=== PATIENT | female | born 1950 | race African-American/Black ===

== ENCOUNTER 2017-07-21 10:08 | Emergency (ER) | payer MEDICAID, MEDICARE ==
[2017-07-21] MEDS ORDERED: Morphine INJ* 4 MG/ML 1 ML CARPUJECT IV ONE (10:52)
[2017-07-21] MEDS ORDERED: Ondansetron INJ* 2 MG/ML VIAL IV ONE (10:52)
[2017-07-21] MEDS ORDERED: NS 0.9% 1000 ML* 1,000 ML IV SCH (11:00)
[2017-07-21 11:32] LABS: Hematocrit 38 % (35-47); Hemoglobin 12.2 g/dl (12.0-16.0); Mean Corpuscular HGB Conc 32 g/dl (31-36); Mean Corpuscular Hemoglobin 26 pg (27-31); Mean Corpuscular Volume 80 fL (80-97); Mean Platelet Volume 8 um3 (7.4-10.4); Red Blood Count 4.74 10^6/ul (4.0-5.4); Red Cell Distribution Width 15 % (10.5-15); White Blood Count 8.9 10^3/ul (3.5-10.8)
[2017-07-21 12:03] LABS: Albumin 3.6 g/dL (3.2-5.2); BUN/Creatinine Ratio 26.2 (8-20); Calcium 9.5 mg/dL (8.6-10.3); EGFR African American 117.6 (>60); EGFR Non-African American 91.5 (>60); Globulin 3.1 g/dL (2-4); Potassium 3.8 mmol/L (3.5-5.0); Total Bilirubin 0.4 mg/dL (0.2-1.0); Total Protein 6.7 g/dL (6.4-8.9)
--- NOTE | 2017-07-21 12:16 | RAD ---
HISTORY: Left leg pain and deformity, trauma COMPARISONS: None VIEWS: 6, frontal, crosstable lateral, and oblique views of the left knee with frontal and lateral views of the left foreleg FINDINGS: BONE DENSITY: Normal. BONES: There is a comminuted slightly angulated and slightly displaced fracture of the proximal tibial metadiaphysis. There is a comminuted nondisplaced fracture of the head of the fibula. Evaluation is limited, though the tibial fracture may extend to involve the lateral tibial plateau JOINTS: There is no arthropathy. ALIGNMENT: There is no dislocation. SOFT TISSUES: Unremarkable. OTHER FINDINGS: None. IMPRESSION: 1. COMMINUTED FRACTURE OF THE PROXIMAL TIBIA. THERE IS QUESTIONABLE EXTENSION TO THE LATERAL TIBIAL PLATEAU. 2. COMMINUTED FRACTURE OF THE PROXIMAL FIBULA.
--- NOTE | 2017-07-21 12:16 | RAD ---
HISTORY: Fall, leg fracture COMPARISONS: None VIEWS: 1: frontal portable view of the chest at 11:54 AM FINDINGS: LINES AND TUBES: None. CARDIOMEDIASTINAL SILHOUETTE: The cardiomediastinal silhouette is normal for portable technique. PLEURA: The costophrenic angles are sharp. No pleural abnormalities are noted. LUNG PARENCHYMA: The lungs are clear. ABDOMEN: The upper abdomen is clear. There is no subphrenic gas. BONES AND SOFT TISSUES: No bone or soft tissue abnormalities are noted. IMPRESSION: NO ACTIVE CARDIOPULMONARY DISEASE.
[2017-07-21] MEDS ORDERED: NS 0.9% 1000 ML* 1,000 ML IV ONE ×2 (12:41→14:55)
[2017-07-21] MEDS ORDERED: Iohexol 300* (CONTRAST) 10 ML SDV IV ONE (14:35)
--- NOTE | 2017-07-21 15:27 | RAD ---
Indication: Hypotension. Fall. Contrast: Administered 112.2 ml of OMNIPAQUE 300 mg/ml CT of the abdomen and pelvis after IV contrast administration. Coronal and sagittal reconstructed images were obtained. The lung bases demonstrate no pleural fluid, nodules or masses. Heart is of normal size without evidence of pericardial effusion. Liver is normal in size. No focal lesions or intrahepatic duct dilatation is noted. The gallbladder demonstrates no calcified gallstones. No pericholecystic fluid or wall thickening is identified. The common duct is not dilated. The pancreas demonstrates no mass or pancreatic ductal dilatation. The spleen is normal in size. No adrenal lesions are noted. The kidneys demonstrate symmetric nephrograms without focal lesions. Atherosclerotic aorta is noted. No retroperitoneal lymphadenopathy is noted. No dilated loops of bowel are noted. CT of the pelvis demonstrates no pelvic adenopathy. The colon is filled with stool. No hernias are identified. The urinary bladder is unremarkable. IMPRESSION: No evidence of intraperitoneal hematoma or hemorrhage is noted. No other masses or fluid collections are noted. Mildly atherosclerotic aorta with ectasia of the abdominal aorta measuring up to 2.3 cm.
--- NOTE | 2017-07-21 15:35 | ED ---
Tod Carbajal Kyle, scribed for Tong Jiménez MD on 07/21/17 at 1234 . Lower Extremity - HPI Summary HPI Summary: This is a 67 yo female presenting post a fall that occured just [employer]. She reports that three dogs ran up behind her and knocked her over. She reports the majority of the pain is in the left knee. She also reports numbness in her foot. She denies any bleeding, head or neck injury. No nausea, vomiting or LOC. - History of Current Complaint Chief Complaint: EDExtremityLower Stated Complaint: LT LEG PAIN Time Seen by Provider: 07/21/17 10:44 Hx Obtained From: Patient Mechanism Of Injury: Fall From A Standing Position Onset of Pain: Immediate Onset/Duration: Hours Severity Initially: Severe Severity Currently: Severe Pain Intensity: 10 Pain Scale Used: 0-10 Numeric Timing: Constant Location: Is Diffuse Character Of Pain: Sharp Associated Signs And Symptoms: Positive: Other - Numbness - Allergies/Home Medications Allergies/Adverse Reactions: Allergies Allergy/AdvReac Type Severity Reaction Status Date / Time Celecoxib [From Celebrex] Allergy Unknown Verified 07/21/17 14:04 Reaction Details Esomeprazole [From Nexium] Allergy Unknown Verified 07/21/17 14:04 Reaction Details Hydroxyzine Allergy Unknown Verified 07/21/17 14:04 Reaction Details Lamotrigine [From Lamictal] Allergy Unknown Verified 07/21/17 14:04 Reaction Details Penicillins Allergy Unknown Verified 07/21/17 14:04 Reaction Details Phenytoin Allergy Unknown Verified 07/21/17 14:04 Reaction Details Pregabalin [From Lyrica] Allergy Unknown Verified 07/21/17 14:04 Reaction Details Ranitidine [From Zantac] Allergy Unknown Verified 07/21/17 14:04 Reaction Details Zonisamide Allergy Unknown Verified 07/21/17 14:04 Reaction Details Home Medications: Home Medications Aspirin TAB* [Aspirin 325 MG TAB*] 325 mg PO DAILY 07/21/17 [History Confirmed 07/21/17] Atorvastatin* [Lipitor*] 80 mg PO DAILY 07/21/17 [History Confirmed 07/21/17] Calcium Carbonate-Vitamin D [Calcium 600 + D] 1 tab PO DAILY 07/21/17 [History Confirmed 07/21/17] Cholecalciferol [Vitamin D] 1,000 unit PO DAILY 07/21/17 [History Confirmed ] Clopidogrel TAB* [Plavix TAB*] 75 mg PO DAILY 07/21/17 [History Confirmed ] Ezetimibe TAB* [Zetia TAB*] 10 mg PO DAILY 07/21/17 [History Confirmed 07/21/17] Levetiracetam [Levetiracetam ER] 2,000 mg PO BEDTIME 07/21/17 [History Confirmed 07/21/17] Lisinopril TAB* [Prinivil TAB*] 20 mg PO DAILY 07/21/17 [History Confirmed 07/21] Omeprazole CAP* [Prilosec CAP* 20 MG] 20 mg PO DAILY 07/21/17 [History Confirmed 07/21/17] PMH/Surg Hx/FS Hx/Imm Hx Previously Healthy: Yes Endocrine/Hematology History: Denies: Hx Diabetes Cardiovascular History: Reports: Hx Coronary Artery Disease, Hx Hypercholesterolemia Denies: Hx Hypertension Respiratory History: Denies: Hx Chronic Obstructive Pulmonary Disease (COPD) - Cancer History Hx Chemotherapy: No Hx Radiation Therapy: No - Surgical History Surgery Procedure, Year, and Place: Coronary stent placement Infectious Disease History: No Infectious Disease History: Denies: Traveled Outside the [place] in Last 30 Days - Family History Known Family History: Positive: Unknown - Social History Alcohol Use: None Substance Use Type: Reports: None Review of Systems Negative: Chest Pain Negative: Shortness Of Breath Positive: Decreased ROM, Other - Pain in the left lower extremity Positive: Numbness - left foot. Negative: Syncope All Other Systems Reviewed And Are Negative: Yes Physical Exam - Summary Physical Exam Summary: General: well-appearing. She is in mild pain at rest, severe pain with movement of limb. Skin: warm, color reflects adequate perfusion, dry Head: normal Eyes: EOMI, MARIA DOLORES ENT: normal Neck: supple, nontender Respiratory: CTA, breath sounds present Cardiovascular: RRR Abdomen: soft, nontender Bowel: present Musculoskeletal: Left Lower Extremity: Proximal tib/fib tender and swollen with mild angulation deformity with no skin break. Neurological: normal, sensory/motor intact, A&O x3 Psychological: affect/mood appropriate Triage Information Reviewed: Yes Vital Signs On Initial Exam: Initial Vitals Temp Pulse Resp BP Pulse Ox 98.1 F 56 18 119/70 100 07/21/17 10:30 07/21/17 10:30 07/21/17 10:30 07/21/17 10:30 07/21/17 10:30 Vital Signs Reviewed: Yes Diagnostics - Vital Signs Vital Signs Temp Pulse Resp BP Pulse Ox 07/21/17 10:34 98.1 F 56 18 119/70 100 07/21/17 10:30 98.1 F 56 18 119/70 100 - Laboratory Lab Results: Lab Results 07/21/17 07/21/17 07/21/17 Range/Units 11:15 11:15 11:15 WBC 8.9 (3.5-10.8) 10^3/ul RBC 4.74 (4.0-5.4) 10^6/ul Hgb 12.2 (12.0-16.0) g/dl Hct 38 (35-47) % MCV 80 (80-97) fL MCH 26 L (27-31) pg MCHC 32 (31-36) g/dl RDW 15 (10.5-15) % Plt Count 257 (150-450) 10^3/ul MPV 8 (7.4-10.4) um3 Neut % (Auto) 66.9 (38-83) % Lymph % (Auto) 22.5 L (25-47) % [place] % (Auto) 7.4 (1-9) % Eos % (Auto) 2.8 (0-6) % Baso % (Auto) 0.4 (0-2) % Absolute Neuts (auto) 6.0 (1.5-7.7) 10^3/ul Absolute Lymphs (auto) 2.0 (1.0-4.8) 10^3/ul Absolute Monos (auto) 0.7 (0-0.8) 10^3/ul Absolute Eos (auto) 0.2 (0-0.6) 10^3/ul Absolute Basos (auto) 0 (0-0.2) 10^3/ul Absolute Nucleated RBC 0.01 10^3/ul Nucleated RBC % 0.1 INR (Anticoag Therapy) 0.94 (0.89-1.11) APTT 27.6 (26.0-36.3) seconds Sodium 136 (133-145) mmol/L Potassium 3.8 (3.5-5.0) mmol/L Chloride 101 (101-111) mmol/L Carbon Dioxide 29 (22-32) mmol/L Anion Gap 6 (2-11) mmol/L BUN 17 (6-24) mg/dL Creatinine 0.65 (0.51-0.95) mg/dL Est GFR ( Amer) 117.6 (>60) Est GFR (Non-Af Amer) 91.5 (>60) BUN/Creatinine Ratio 26.2 H (8-20) Glucose 115 H (70-100) mg/dL Calcium 9.5 (8.6-10.3) mg/dL Total Bilirubin 0.40 (0.2-1.0) mg/dL AST 16 (13-39) U/L ALT 14 (7-52) U/L Alkaline Phosphatase 63 (34-104) U/L Total Protein 6.7 (6.4-8.9) g/dL Albumin 3.6 (3.2-5.2) g/dL Globulin 3.1 (2-4) g/dL Albumin/Globulin Ratio 1.2 (1-3) Blood Type Antibody Screen 07/21/17 Range/Units 11:15 WBC (3.5-10.8) 10^3/ul RBC (4.0-5.4) 10^6/ul Hgb (12.0-16.0) g/dl Hct (35-47) % MCV (80-97) fL MCH (27-31) pg MCHC (31-36) g/dl RDW (10.5-15) % Plt Count (150-450) 10^3/ul MPV (7.4-10.4) um3 Neut % (Auto) (38-83) % Lymph % (Auto) (25-47) % [place] % (Auto) (1-9) % Eos % (Auto) (0-6) % Baso % (Auto) (0-2) % Absolute Neuts (auto) (1.5-7.7) 10^3/ul Absolute Lymphs (auto) (1.0-4.8) 10^3/ul Absolute Monos (auto) (0-0.8) 10^3/ul Absolute Eos (auto) (0-0.6) 10^3/ul Absolute Basos (auto) (0-0.2) 10^3/ul Absolute Nucleated RBC 10^3/ul Nucleated RBC % INR (Anticoag Therapy) (0.89-1.11) APTT (26.0-36.3) seconds Sodium (133-145) mmol/L Potassium (3.5-5.0) mmol/L Chloride (101-111) mmol/L Carbon Dioxide (22-32) mmol/L Anion Gap (2-11) mmol/L BUN (6-24) mg/dL Creatinine (0.51-0.95) mg/dL Est GFR ( Amer) (>60) Est GFR (Non-Af Amer) (>60) BUN/Creatinine Ratio (8-20) Glucose (70-100) mg/dL Calcium (8.6-10.3) mg/dL Total Bilirubin (0.2-1.0) mg/dL AST (13-39) U/L ALT (7-52) U/L Alkaline Phosphatase (34-104) U/L Total Protein (6.4-8.9) g/dL Albumin (3.2-5.2) g/dL Globulin (2-4) g/dL Albumin/Globulin Ratio (1-3) Blood Type A Positive Antibody Screen Negative Result Diagrams: 07/21/17 11:15 07/21/17 11:15 Lab Statement: Any lab studies that have been ordered have been reviewed, and results considered in the medical decision making process. - Radiology CXR Xray Interpretation: No Acute Changes Radiology Interpretation Completed By: Radiologist - IMPRESSION: No active cardiopulmonary disease XR L Knee Xray Interpretation: Positive (See Comments) - 1. Comminuted fracture of the proximal tibia. There is questionable extension to the lateral tibeal plateau. 2. Comminuted fracture of the proximal fibula. Radiology Interpretation Completed By: ED Physician, Radiologist XR LLE Xray Interpretation: Positive (See Comments) - 1. Comminuted fracture of the proximal tibia. There is questionable extension to the lateral tibeal plateau. 2. Comminuted fracture of the proximal fibula. Radiology Interpretation Completed By: Radiologist - CT CT Abd/Pelvis CT Interpretation: Positive (See Comments) - Impression: no evidence of intraperitoneal hematoma or hemmorhage is noted. No other masses or fluid collections are noted. Mildly artherosclerotic aorta with ectasia of the abdominal aorta measuring up to 2.[address] Interpretation Completed By: Radiologist - EKG 1251 Cardiac Rate: Bradycardia - 45 EKG Rhythm: Sinus Rhythm ST Segment: Normal EKG Interpretation: Sinus Bradycardia with RBBB Re-Evaluation - Re-Evaluation First Eval Re-Evaluation Time: 13:52 Change: Improved - Pain is under better control. She is Alert and Oriented. HR is 52, BP 108/49. Second Eval Re-Evaluation Time: 14:15 Change: Unchanged - Planning for transfer. Pt initially to go to [facility], however, has requested to go to [facility]. Will arrange transfer. Lower Extremity Course/Dx - Course Course Of Treatment: PATIENT FELL FROM STANDING. NO ABD TENDERNESS. ON ASA AND PLAVIX. SPLINTED LEFT LEG IN ED. PATIENT HAD SEVERAL EPISODES OF HYPOTENSION IN THE ED. CT ABD/PELVIS NO BLEED. DISCUSSED WITH DR [facility]; THE FRACTURE IS TOO COMPLEX FOR TREATMENT HERE AT [facility]. WITH THE PATIENT ALSO HAVING HYPOTENSION , SHE IS BEING TRANSFERED TO HIGHER LEVEL OF CARE THAT ALSO INCLUDE A TRAUMA CENTER. ACCEPTED IN TRANSFER BY DR NUÑEZ, [facility] ED. - Diagnoses Provider Diagnoses: Fracture, tibia and fibula, proximal, Hypotension - Physician Notifications Discussed Care Of Patient With: Dre Moore - Ortho Time Discussed With Above Provider: 13:10 Instructed by Provider To: Other - Too complex, recommends transfer for repair. - Critical Care Time Critical Care Time: 30-74 min Discharge - Discharge Plan Condition: Stable Disposition: TRANS HIGHER LVL OF CARE FAC Referrals: Jasiel Ledbetter MD [Primary Care Provider] - The documentation as recorded by the Tod ramirez Kyle accurately reflects the service I personally performed and the decisions made by me, Tong Jiménez MD.
[2017-07-21 16:52] VITALS: BP 100/43
== END 2017-07-21 15:17 | disposition short-term general hospital (02) ==
LOC: ED 10:08
DX: S82.102A Unspecified fracture of upper end of left tibia, initial encounter for closed fracture (principal); S82.832A Other fracture of upper and lower end of left fibula, initial encounter for closed fracture; W19.XXXA Unspecified fall, initial encounter; Y93.9 Activity, unspecified; Y92.9 Unspecified place or not applicable; I95.9 Hypotension, unspecified; M25.562 Pain in left knee
CPT/HCPCS: 36415; 71010; 74177; 80053; 85025; 85610; 85730; 86850; 86900; 86901; 93005; 96374; 96375; 99285; J2270; J2405; Q9967

== ENCOUNTER 2023-03-24 15:38 | Inpatient (IN) ==
[2023-03-24 19:34] LABS: ABS Lymphocytes 1.2 10^3/uL (1.0-4.8); ABS Monocytes 0.9 10^3/uL (0.0-0.9); Hematocrit 38.3 % (35-45); Hemoglobin 12.2 g/dL (11.5-14.3); Lymphocyte % 8.6 %; Mean Corpuscular Hemoglobin 26.7 pg (27-33); Mean Corpuscular Hgb Conc 31.8 g/dL (31-36); Mean Corpuscular Volume 83.9 fL (80-97); Mean Platelet Volume 8.2 fL (7.5-11.2); Platelet Count 245 10^3/uL (150-450); Red Blood Count 4.57 10^6/uL (3.63-4.92); Red Cell Distribution Width 15.2 % (12-17); White Blood Count 14.1 10^3/uL (3.8-11.8)
[2023-03-24 19:45] LABS: Activated Partial Thrombo Time 37.3 seconds (26.0-38.0); INR 2.73 (0.88-1.18)
[2023-03-24] MEDS ORDERED: Ondansetron 4 mg VIAL 2 MG/ML 2 ml VIAL IV ONE (20:04)
[2023-03-24 20:15] LABS: Albumin 3.9 g/dL (3.2-5.2); Albumin/Globulin Ratio 1.4 (1-3); Calcium 9.5 mg/dL (8.6-10.3); Creatinine, Serum 0.58 mg/dL (0.51-0.95); Globulin 2.7 g/dL (2-4); HDL Cholesterol 50.1 mg/dL; Potassium 3.6 mmol/L (3.5-5.0); Total Bilirubin 0.6 mg/dL (0.2-1.0); Total Protein 6.6 g/dL (6.4-8.9); eGFR CKD-EPI 96.7 (>60)
[2023-03-24] MEDS ORDERED: cefTRIAXone 1 gm/50 mL D5W 1 GM/50 ML BAG IV ONE (21:24)
[2023-03-24] MEDS ORDERED: Azithromycin 500 mg/250 ml NS 500 MG/250 ML BAG IVPB ONE (21:24)
[2023-03-24] MEDS ORDERED: NS 0.9% 1000 ml BAG 1,000 ML IV ONE (21:35)
[2023-03-24] MEDS ORDERED: Iohexol 350 (CONTRAST) 500 ML MDV IV ONE (22:21)
[2023-03-25 06:27] LABS: Urine Appearance Clear; Urine Bilirubin Negative (Negative); Urine Blood Negative (Negative); Urine Color Yellow; Urine Glucose Negative (Negative); Urine Ketones Negative (Negative); Urine Nitrite Negative (Negative); Urine Protein Negative (Negative); Urine Urobilinogen Negative (Negative)
[2023-03-25] MEDS: metroNIDAZOLE IV 500 MG/100ML 500 MG/100 ML BAG IVPB SCH ×2 (06:45→19:39)
[2023-03-25] MEDS ORDERED: Warfarin per PHARMACY **NOTE FOLLOW UP SCH (07:00)
[2023-03-25] MEDS ORDERED: levETIRAcetam 1000MG IVPREMIX 1,000 MG/100 ML BAG IVPB ONE ×2 (08:13)
[2023-03-25] MEDS: Warfarin DAILY REMINDER **NOTE FOLLOW UP SCH (19:39)
[2023-03-25] MEDS ORDERED: cefTRIAXone 1 gm/50 mL D5W 1 GM/50 ML BAG IV SCH (21:00)
[2023-03-26 06:30] LABS: ABS Eosinophils 0.1 10^3/uL (0.0-0.5); ABS Lymphocytes 1.4 10^3/uL (1.0-4.8); ABS Monocytes 0.7 10^3/uL (0.0-0.9); ABS Neutrophils 6.3 10^3/uL (1.5-7.6); Eosinophil % 0.7 %; Hematocrit 29.8 % (35-45); Lymphocyte % 16.6 %; Mean Corpuscular Hemoglobin 27.2 pg (27-33); Mean Corpuscular Hgb Conc 33.4 g/dL (31-36); Mean Corpuscular Volume 81.5 fL (80-97); Mean Platelet Volume 8.7 fL (7.5-11.2); Platelet Count 180 10^3/uL (150-450); Red Blood Count 3.66 10^6/uL (3.63-4.92); Red Cell Distribution Width 14.6 % (12-17); White Blood Count 8.6 10^3/uL (3.8-11.8)
[2023-03-26 06:38] LABS: INR 6.05 (0.88-1.18)
[2023-03-26 06:50] LABS: Calcium 8.4 mg/dL (8.6-10.3); Creatinine, Serum 0.42 mg/dL (0.51-0.95); Potassium 3.5 mmol/L (3.5-5.0); eGFR CKD-EPI 104.5 (>60)
[2023-03-26 07:01] LABS: TSH Ultra Thyroid Stim Horm 0.24 mcIU/mL (0.34-5.60)
[2023-03-26 09:55] LABS: Free T4 0.81 ng/dL (0.61-1.12)
[2023-03-26] MEDS: Aspirin EC 81 mg TAB.EC (enteric coated) PO SCH (10:38)
[2023-03-26] MEDS ORDERED: Warfarin - No Order Today **NOTE FOLLOW UP ONE (17:00)
[2023-03-26] MEDS: Warfarin DAILY REMINDER **NOTE FOLLOW UP SCH (20:27)
[2023-03-27 06:19] LABS: INR 4.77 (0.88-1.18)
[2023-03-27] MEDS: Aspirin EC 81 mg TAB.EC (enteric coated) PO SCH (08:45)
[2023-03-27] MEDS ORDERED: Warfarin - No Order Today **NOTE FOLLOW UP ONE (17:00)
[2023-03-27] MEDS ORDERED: Morphine 2 MG/ML SYRINGE IV ONE (17:38)
[2023-03-28 06:15] LABS: Hematocrit 31.5 % (35-45); Hemoglobin 10.5 g/dL (11.5-14.3); Mean Platelet Volume 8.2 fL (7.5-11.2); Platelet Count 207 10^3/uL (150-450)
[2023-03-28 06:20] LABS: INR 2.58 (0.88-1.18)
[2023-03-28] MEDS: Aspirin EC 81 mg TAB.EC (enteric coated) PO SCH (07:53)
[2023-03-28] MEDS: Senna TAB 8.6 mg TAB PO PRN (20:25)
[2023-03-29 06:22] LABS: INR 1.95 (0.88-1.18)
[2023-03-29] MEDS: Aspirin EC 81 mg TAB.EC (enteric coated) PO SCH (08:56)
[2023-03-29] MEDS: Warfarin DAILY REMINDER **NOTE FOLLOW UP SCH ×2 (08:57→17:20)
[2023-03-29] MEDS: Senna TAB 8.6 mg TAB PO PRN (11:14)
[2023-03-29] MEDS: Magnesium Hydroxide LIQ 30 ML UDC PO PRN (11:15)
[2023-03-29] MEDS: Polyethylene Glycol 3350 17 GM PACKET PO PRN (11:15)
[2023-03-29] MEDS ORDERED: Warfarin per PHARMACY **NOTE FOLLOW UP SCH (19:00)
[2023-03-30 06:10] LABS: INR 1.91 (0.88-1.18)
[2023-03-30] MEDS: Aspirin EC 81 mg TAB.EC (enteric coated) PO SCH (07:53)
[2023-03-30] MEDS: Warfarin DAILY REMINDER **NOTE FOLLOW UP SCH (19:42)
[2023-03-31 06:32] LABS: INR 2.31 (0.88-1.18)
[2023-03-31] MEDS: Polyethylene Glycol 3350 17 GM PACKET PO PRN (09:42)
[2023-03-31] MEDS: Magnesium Hydroxide LIQ 30 ML UDC PO PRN (09:42)
[2023-03-31] MEDS: Aspirin EC 81 mg TAB.EC (enteric coated) PO SCH (09:42)
[2023-03-31] MEDS: Senna TAB 8.6 mg TAB PO PRN (09:42)
[2023-03-31 10:23] VITALS: BP 105/53
== END 2023-03-31 13:15 | DRG 101 ==
LOC: ED 15:38 → SUATTDRO 03-25 05:40 → EDHOLD 03-25 05:40 → MEDTELE 03-25 15:40
PROVIDERS: ADMIT Hospitalist; ATTEND Internal Medicine